=== PATIENT | male | born 1975 | race Caucasian/White ===

== ENCOUNTER 2021-07-31 12:42 | Emergency (ER) | payer BC ==
[2021-07-31 14:23] LABS: Hemoglobin 16.2 g/dL (13.5-17.5); Mean Corpuscular HGB CONC 36.5 g/dL (32.0-36.0); Mean Corpuscular Hemoglobin 37.5 pg (27.0-33.0); Mean Corpuscular Volume 102.8 fl (81.2-95.1); Mean Platelet Volume 10.2 fl (7.4-10.4); Platelet Count 199 10x3/uL (150-450); RBC Distribution Width 13.7 % (11.5-14.5); Red Blood Cell (RBC) Count 4.32 10x6/uL (4.32-5.72)
[2021-07-31 14:34] LABS: ALT (SGPT) 90 U/L (8-55); AST (SGOT) 101 U/L (5-34); Albumin 3.5 g/dL (3.5-5.0); Alkaline Phosphatase 161 U/L (40-110); Anion Gap 19 mmol/L (10-20); BUN (Urea Nitrogen) 8 mg/dL (8.9-20.6); Bilirubin, Total 1.4 mg/dL (0.2-1.2); Calc. Creatinine Clearance 0 mL/min (70-130); Calcium 8.6 mg/dL (7.8-10.44); Carbon Dioxide 22 mmol/L (22-29); Chloride 90 mmol/L (98-107); Globulin 3.9 g/dL (2.4-3.5); Glucose 128 mg/dL (70-105); Protein, Total 7.4 g/dL (6.0-8.3); Sodium 128 mmol/L (136-145)
[2021-07-31 14:42] LABS: Potassium 2.7 mmol/L (3.5-5.1)
[2021-07-31 15:00] LABS: Band 4 % (5-11); Eosinophils 1 % (0-10); Lymphocytes 26 % (21-51); Monocytes 16 % (0-10); Reactive Lymphocytes 1 % (0-10)
[2021-07-31 15:01] LABS: MDiff Complete? YES; Macrocytosis SLIGHT = 6-15 cells (100X) (0-5/hpf); Neutrophil 52 % (42-75)
[2021-07-31 15:02] LABS: Giant Platelets SLIGHT; Platelet Morphology Comment Appears Adequate; Vacuoles SLIGHT
[2021-07-31] MEDS ORDERED: Potassium Chloride 20 MEQ TAB ONE (15:43)
== END 2021-07-31 18:13 | disposition home or self-care (01) ==
LOC: CSHERS 12:42
DX: F43.0 Acute stress reaction (principal); F44.4 Conversion disorder with motor symptom or deficit
CPT/HCPCS: 70553; 72142; 72146; 72149; 80053; 85025; 93005

== ENCOUNTER 2022-08-02 13:24 | Outpatient (CLI) | payer BC | END 2022-08-02 13:25 | disposition home or self-care (01) | LOC: CSHCT 13:24 | PROVIDERS: ATTEND Otolaryngology Plastic Surgery within the Head & Neck | DX: D49.89 Neoplasm of unspecified behavior of other specified sites (principal); H61.891 Other specified disorders of right external ear; H74.91 Unspecified disorder of right middle ear and mastoid | CPT/HCPCS: 70480 ==